=== PATIENT | female | born 1975 | race Two or more races ===

== ENCOUNTER 2017-02-02 18:43 | Emergency (ER) | payer MEDICAID, OTHER ==
[~2017-02-02] VITALS: Ht 170.2 cm; Wt 67.0 kg
[2017-02-02 18:45] VITALS: BP 119/82
[2017-02-02] MEDS ORDERED: BACITRACIN ZINC OINT 500U/GM, 0.9 GM ONE (19:51)
== END 2017-02-02 19:59 | disposition home or self-care (01) ==
LOC: ED 19:20
DX: L03.114 Cellulitis of left upper limb (principal)
CPT/HCPCS: 99283